=== PATIENT | female | born 2000 | race Caucasian/White ===

== ENCOUNTER 2019-10-07 08:07 | Outpatient (CLI) | payer MEDICAID, SELFPAY ==
[2019-10-09 08:16] LABS: COVID-19 RT-PCR Result NEGATIVE (Negative)
== END 2019-10-07 08:27 ==
PROVIDERS: PCP Student in an Organized Health Care Education/Training Program; Visit Provider Family Medicine
DX: J45.30 Mild persistent asthma, uncomplicated (principal)
CPT/HCPCS: U0003

== ENCOUNTER 2019-10-10 02:38 | Outpatient (CLI) | payer MEDICAID, SELFPAY ==
[2019-10-10] MEDS: Albuterol HFA 18 GM 200 PUFF INH IH (11:17)
[2019-10-10] MEDS: Inhaler, Assist Device 1 EACH MC (11:17)
--- NOTE | 2019-10-13 15:29 | W.PFT ---
Date of service: 10/10/19 Time of Service: 10:06 Pulmonary Function Test Result Interpretation Spirometry: Spirometry shows no evidence of obstructive airways disease, no bronchodilator response Lung Volumes: Lung volumes show no evidence of restriction Diffusion Capacity: Diffusion capacity is normal Airway Pressure: Airways resistance is normal Impression Normal pulmonary function study clinical correlation recommended. When the study was compared to previous one from 01/18/2017, the patient has a 260 cc improvement in FVC, FEV1 has improved by 110 cc Clinical Correlation therefore is recommended.
== END 2019-10-10 02:58 ==
PROVIDERS: PCP Student in an Organized Health Care Education/Training Program; Visit Provider Student in an Organized Health Care Education/Training Program
DX: J45.30 Mild persistent asthma, uncomplicated (principal)
CPT/HCPCS: 94060; 94726; 94729

== ENCOUNTER 2020-03-21 17:02 | Outpatient (REF) | payer MEDICAID, SELFPAY | END 2020-03-21 17:22 | LOC: LBN 17:02 | PROVIDERS: PCP Student in an Organized Health Care Education/Training Program; Visit Provider Student in an Organized Health Care Education/Training Program | DX: B82.9 Intestinal parasitism, unspecified (principal); B83.9 Helminthiasis, unspecified; K58.9 Irritable bowel syndrome, unspecified | CPT/HCPCS: 87177 ==

== ENCOUNTER 2020-07-02 15:30 | Outpatient (CLI) | payer MEDICAID, SELFPAY ==
--- NOTE | 2020-07-02 11:30 | DI.US_ITS ---
EXAM: US RENAL CLINICAL HISTORY: LOW BACK PAIN/ACHE, M54.5. TECHNIQUE: Ha scale, color and spectral Doppler were used. COMPARISON: No exams were available for comparison FINDINGS: Renal size in cm: Right: 11. Left: 10.8. Echogenicity: Normal. Hydronephrosis: No. Cyst or mass: No. Nephrolithiasis: No. Other findings: None. Bladder:Normal. Ureteral jets: Right: Visualized and unremarkable. Left: Visualized and unremarkable. Prevoid vol:140 cc Postvoid vol:0 cc Renal color flow: Symmetric and within normal limits. IMPRESSION: Unremarkable examination. DATA REPOSITORY:
== END 2020-07-02 15:50 ==
PROVIDERS: PCP Student in an Organized Health Care Education/Training Program; Visit Provider Student in an Organized Health Care Education/Training Program
DX: M54.5 Low back pain (principal)
CPT/HCPCS: 76770

== ENCOUNTER 2020-07-28 10:00 | Outpatient (CLI) | payer MEDICAID, SELFPAY ==
[2020-07-29 15:25] LABS: COVID-19 RT-PCR UVMMC Result Negative (Negative)
== END 2020-07-28 10:01 | disposition home or self-care (01) ==
PROVIDERS: PCP Student in an Organized Health Care Education/Training Program; Visit Provider Student in an Organized Health Care Education/Training Program
DX: Z20.822 Contact with and (suspected) exposure to COVID-19 (principal)
CPT/HCPCS: U0003

== ENCOUNTER 2021-03-21 13:30 | Outpatient (REF) | payer MEDICAID, SELFPAY ==
--- NOTE | 2021-03-21 11:45 | PAPFT_PTH ---
PATIENT: Palomo Arvizu LOC: [facility] U#:[id number] AGE/SX: 20/F ROOM: RE03/21/[address]: Terese Welsh NP : 2000 BED: DIS: 03/21/2021 SPEC #: [id number] RECD: 03/21/21 18:32 STATUS: PUMA UMANA #: [id number] ANN: 03/21/21 11:[address]: Terese Welsh NP DEPT: [facility] Cytology RECD BY: Sarah Wilhelm ENTERED: 03/21/21 18:32 SP TYPE: PAPFT OTHR DR: Esha Blake, DO Tissues: 1 - CX/ENDOCX FOR PAP SMEARS Procedures: PAP THIN PREP/[facility] Screening Comments: [id number] (CHLAMYDIA/GC)
[2021-03-23 07:28] LABS: Chlamydia Result Negative (Negative); GC Result Negative (Negative)
== END 2021-03-21 13:31 | disposition home or self-care (01) ==
LOC: LBN 13:30
PROVIDERS: PCP Student in an Organized Health Care Education/Training Program; Visit Provider Nurse Practitioner Women's Health
DX: Z11.3 Encounter for screening for infections with a predominantly sexual mode of transmission (principal); Z12.4 Encounter for screening for malignant neoplasm of cervix
CPT/HCPCS: 87491; 87591; 88142

== ENCOUNTER 2021-12-08 04:02 | Outpatient (CLI) | payer MEDICAID, SELFPAY ==
[2021-12-08] MEDS: Inhaler, Assist Device 1 EACH MC (16:32)
[2021-12-08] MEDS: Albuterol HFA 18 GM 200 PUFF INH IH (16:32)
--- NOTE | 2021-12-09 15:54 | W.PFT ---
Date of service: 12/08/21 Time of Service: 13:04 Pulmonary Function Test Result Requesting Provider Esha Blake Indications: Asthma Interpretation Spirometry: There is no airflow limitation. There is no significant bronchodilator response. Lung Volumes: Normal lung volumes Diffusion Capacity: Normal diffusion Airway Pressure: Normal airways resistance Impression Normal pulmonary function testing. Note: When compared to 10/10/19, lung function is essentially unchanged. Clinical Correlation therefore is recommended.
== END 2021-12-08 04:03 | disposition home or self-care (01) ==
LOC: RT 04:02
PROVIDERS: PCP Student in an Organized Health Care Education/Training Program; Visit Provider Student in an Organized Health Care Education/Training Program
DX: J45.30 Mild persistent asthma, uncomplicated (principal); R07.89 Other chest pain
CPT/HCPCS: 94060; 94726; 94729

== ENCOUNTER 2021-12-29 02:41 | Outpatient (CLI) | payer MEDICAID, SELFPAY ==
[2021-12-29 08:56] LABS: Abs Immature Grans 0.01 10^3/uL (0.0-0.06); Absolute Basophil Count 0.03 10^3/uL (0.0-0.2); Absolute Eosinophil Count 0.14 10^3/uL (0.0-0.7); Absolute Lymphocyte Count 2.02 10^3/uL (1.2-3.4); Absolute Monocyte Count 0.41 10^3/uL (0.1-0.8); Absolute Neutrophil Count 2.56 10^3/uL (1.2-6.7); Basophils % 0.6; Eosinophils % 2.7; HCT 41.4 % (36.0-46.0); HGB 14.5 g/dL (11.2-15.7); Immature Grans % 0.2; Lymphocytes % 39.1; MCH 30.5 pg (27.0-33.0); MCV 87 fL (80-95); MPV 9.3 fL (8.0-11.0); Monocytes % 7.9; Neutrophils % 49.5; Platelet Count 321 10^3/uL (130-400); RBC 4.76 10^6/uL (3.93-5.22); RDW 11.4 % (11.7-14.6); RDW-SD 36.6 fL; WBC 5.17 10^3/uL (4.4-10.8)
[2021-12-29 10:20] LABS: Anion Gap 6.3 mmol/L (3-11); BUN 16 mg/dL (7-18); CO2 28.7 mmol/L (21.0-32.0); CREATININE 0.9 mg/dL (0.55-1.02); Calcium 9.2 mg/dL (8.5-10.1); Chloride 104 mmol/L (98-107); Glucose 85 mg/dL (74-106); Magnesium 2.1 mg/dL (1.8-2.4); Sodium 139 mmol/L (136-145)
[2021-12-29 11:56] LABS: Calculated LDL 131 mg/dL (<100); Cholesterol 225 mg/dL (<200); HDL Cholesterol 81 mg/dL (40-60); Triglyceride 68 mg/dL (<150)
== END 2021-12-29 02:42 | disposition home or self-care (01) ==
LOC: LBO 02:41
PROVIDERS: PCP Student in an Organized Health Care Education/Training Program; Visit Provider Student in an Organized Health Care Education/Training Program
DX: B82.9 Intestinal parasitism, unspecified (principal); J45.30 Mild persistent asthma, uncomplicated; K58.9 Irritable bowel syndrome, unspecified; L50.3 Dermatographic urticaria; N92.1 Excessive and frequent menstruation with irregular cycle; E86.0 Dehydration; M79.10 Myalgia, unspecified site; Z91.89 Other specified personal risk factors, not elsewhere classified; Z13.220 Encounter for screening for lipoid disorders
CPT/HCPCS: 36415; 80048; 80061; 83735; 85025

== ENCOUNTER → 2022-01-26 02:37 | Outpatient (CLI) | payer MEDICAID, SELFPAY ==
--- NOTE | 2022-01-26 08:30 | DI.US_ITS ---
Exam(s) US PELVIS TRANSVAGINAL EXAM: US PELVIS TRANSVAGINAL CLINICAL HISTORY: Heavy menstrual bleeding, pelvic pain,r10.2,n92.0. TECHNIQUE: Transabdominal and transvaginal pelvic ultrasound was performed using standard protocol. COMPARISON: No exams were available for comparison FINDINGS: UTERUS: Position: Retroverted. Size: 6.8 long by 3.8 AP by 4.7 transverse cm Endometrium: 0.4 cm. Normal for patient's menstrual status. Myometrium: Unremarkable. Cervix: Unremarkable. OVARIES: Right: 4.2 x 1.9 x 2.1 cm Cyst or mass: No suspicious cystic or solid masses. Left: 3.8 x 1.5 x 3.5 cm Cyst or mass: No suspicious cystic or solid masses. DOPPLER: Color: Symmetric and uniform flow to both ovaries. CUL-DE-SAC: Free fluid: None. Other: None. IMPRESSION: 1. Normal-appearing uterus with endometrial stripe within normal limits. 2. Unremarkable bilateral ovaries. DATA REPOSITORY:
== END ==
PROVIDERS: PCP Student in an Organized Health Care Education/Training Program; Visit Provider Nurse Practitioner Women's Health
DX: N92.0 Excessive and frequent menstruation with regular cycle (principal); R10.2 Pelvic and perineal pain
CPT/HCPCS: 76830; 76856

== ENCOUNTER 2023-11-29 03:47 | Outpatient (CLI) | payer MEDICAID, SELFPAY ==
[2023-11-29 15:45] LABS: HCT 42.7 % (36.0-46.0); HGB 14.5 g/dL (11.2-15.7); MCH 30.4 pg (27.0-33.0); MCV 90 fL (80-95); Platelet Count 348 10^3/uL (130-400); RBC 4.77 10^6/uL (3.93-5.22); RDW 11.6 % (11.7-14.6); WBC 7.56 10^3/uL (4.4-10.8)
[2023-11-29 16:31] LABS: Iron 82 ug/dL (50-170); Total Iron Binding Capacity 304 ug/dL (250-450); Transferrin Sat 27 % (15-50)
[2023-11-29 17:03] LABS: ALT 22 U/L (14-59); AST 13 U/L (15-37); Albumin 4.1 g/dL (3.4-5.0); Alkaline Phosphatase 57 U/L (46-116); Anion Gap 7.5 mmol/L (3-11); BUN 17 mg/dL (7-18); Bilirubin, Direct 0.1 mg/dL (0.0-0.2); Bilirubin, Total 0.41 mg/dL (0.2-1.0); CO2 26.5 mmol/L (21.0-32.0); CREATININE 0.9 mg/dL (0.55-1.02); Calcium 9.1 mg/dL (8.5-10.1); Chloride 104 mmol/L (98-107); Estimated GFR 91.55 (mL/min/1.73m2); Folate 11.2 ng/mL (8.6-20.0); Glucose 91 mg/dL (74-106); Magnesium 2.3 mg/dL (1.8-2.4); Potassium 4.1 mmol/L (3.5-5.1); Sodium 138 mmol/L (136-145); TSH (W/Ref FT4) 1.21 uIU/mL (0.36-3.74); Total Protein 7.4 g/dL (6.4-8.2); Vitamin B12 329 pg/mL (193-986)
== END 2023-11-29 03:48 | disposition home or self-care (01) ==
LOC: LBO 03:47
PROVIDERS: PCP Student in an Organized Health Care Education/Training Program; Visit Provider Student in an Organized Health Care Education/Training Program
DX: R53.83 Other fatigue (principal); Z87.42 Personal history of other diseases of the female genital tract; K90.9 Intestinal malabsorption, unspecified; R17 Unspecified jaundice; J45.30 Mild persistent asthma, uncomplicated; N92.1 Excessive and frequent menstruation with irregular cycle; I10 Essential (primary) hypertension; K58.9 Irritable bowel syndrome, unspecified; E46 Unspecified protein-calorie malnutrition; R94.8 Abnormal results of function studies of other organs and systems; T88.7XXA Unspecified adverse effect of drug or medicament, initial encounter; Z91.89 Other specified personal risk factors, not elsewhere classified
CPT/HCPCS: 36415; 80048; 80076; 82306; 85027; 82607; 82746; 83540; 83550; 83735; 84443

== ENCOUNTER 2024-05-08 01:15 | Outpatient (CLI) | payer MEDICAID, SELFPAY ==
[2024-05-08 11:27] LABS: Abs Immature Grans 0.01 10^3/uL (0.0-0.06); Absolute Basophil Count 0.03 10^3/uL (0.0-0.2); Absolute Eosinophil Count 0.08 10^3/uL (0.0-0.7); Absolute Monocyte Count 0.43 10^3/uL (0.1-0.8); Absolute Neutrophil Count 3.43 10^3/uL (1.2-6.7); Basophils % 0.5 %; Eosinophils % 1.3 %; HCT 43.6 % (36.0-46.0); HGB 14.8 g/dL (11.2-15.7); Immature Grans % 0.2 %; Lymphocytes % 36.6 %; MCHC 33.9 % (32.0-36.0); MCV 88 fL (80-95); Monocytes % 6.8 %; Neutrophils % 54.6 %; Platelet Count 343 10^3/uL (130-400); RBC 4.94 10^6/uL (3.93-5.22); RDW 11.5 % (11.7-14.6); RDW-SD 37.1 fL; WBC 6.28 10^3/uL (4.4-10.8)
[2024-05-08 14:25] LABS: Iron 117 ug/dL (50-170); Total Iron Binding Capacity 287 ug/dL (250-450); Transferrin Sat 41 % (15-50)
[2024-05-08 14:47] LABS: ALT 23 U/L (14-59); AST 14 U/L (15-37); Albumin 4.2 g/dL (3.4-5.0); Alkaline Phosphatase 52 U/L (46-116); Anion Gap 9.4 mmol/L (3-11); BUN 17 mg/dL (7-18); Bilirubin, Total 0.57 mg/dL (0.2-1.0); CO2 25.6 mmol/L (21.0-32.0); CREATININE 0.8 mg/dL (0.55-1.02); Calcium 9.8 mg/dL (8.5-10.1); Chloride 107 mmol/L (98-107); Estimated GFR 105.45 (mL/min/1.73m2); Ferritin 69 ng/mL (8-252); Glucose 94 mg/dL (74-106); Potassium 4.2 mmol/L (3.5-5.1); Sodium 142 mmol/L (136-145); TSH 1.15 uIU/mL (0.36-3.74); Total Protein 7.7 g/dL (6.4-8.2); Vitamin B12 487 pg/mL (193-986); Vitamin D 25 Total 30.2 ng/mL (30-100)
[2024-05-08 16:04] LABS: FREE T4 1.09 ng/dL (0.76-1.46)
[2024-05-08 18:12] LABS: T3,Free 4.7 pg/mL (2.8-5.3)
[2024-05-09 09:14] LABS: Homocysteine 7.7 umol/L (5.0-13.9)
[2024-05-09 10:38] LABS: Transferrin 237 mg/dL (201-352)
== END 2024-05-08 01:16 | disposition home or self-care (01) ==
LOC: LBO 01:15
PROVIDERS: PCP Student in an Organized Health Care Education/Training Program; Visit Provider Naturopath
DX: L21.0 Seborrhea capitis (principal); I10 Essential (primary) hypertension; R10.9 Unspecified abdominal pain; A07.3 Isosporiasis
CPT/HCPCS: 36415; 80053; 82306; 83090; 82607; 82728; 83540; 83550; 84439; 84443; 84466; 84481; 85025